=== PATIENT | female | born 1940 | race Caucasian/White ===

== ENCOUNTER → 2016-12-07 | Outpatient (CLI) | payer OTHER ==
[~2016-12-07] MED LIST: AGM875 PO; DRV100 PO
[2016-12-07 14:54] LABS: HEMATOCRIT 39.7 % (37-47); MEAN CELL VOLUME 97.5 fL (80-100); MEAN CORPUSCULAR HEMOGLOBIN 32.2 pg (25-34); MEAN PLATELET VOLUME 10.6 fL (7.4-10.4); PLATELET COUNT 317 K/uL (130-400); RED BLOOD COUNT 4.07 M/uL (4.2-5.4); WHITE BLOOD COUNT 6.52 K/uL (4.8-10.8)
== END | disposition home or self-care (01) ==
LOC: C.LAB1850 12:54
PROVIDERS: ATTEND Obstetrics & Gynecology
DX: Z01.818 Encounter for other preprocedural examination (principal)

== ENCOUNTER → 2017-01-15 | Outpatient (CLI) | payer OTHER ==
[~2017-01-15] MED LIST changes: -AGM875 PO; -DRV100 PO; +MULT-506 PO
== END | disposition home or self-care (01) ==
LOC: C.PAPS 10:01
PROVIDERS: ATTEND Obstetrics & Gynecology
DX: N36.8 Other specified disorders of urethra (principal)

== ENCOUNTER → 2017-05-22 | Outpatient (CLI) | payer OTHER ==
--- NOTE | 2017-05-22 10:31 | DIAGNOSTIC IMAGING REPORT ---
SI JOINTS 3 OR MORE VIEWS CLINICAL HISTORY: RADICULOPATHY LUMBAR REGION COMPARISON STUDY: No previous studies for comparison. FINDINGS: The sacroiliac joints are intact without evidence for ankylosis. There is mild osteophytosis with vacuum disc phenomenon within the sacroiliac joints. No fracture is identified. 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 Electronically signed by: Jus Major M.D. 05/22/2017 10:30 AM Dictated Date/Time: 05/22/2017 10:29 AM
--- NOTE | 2017-05-22 10:31 | DIAGNOSTIC IMAGING REPORT ---
L-SPINE MIN 4 VIEWS ROUTINE CLINICAL HISTORY: RADICULOPATHY LUMBAR REGION COMPARISON: None FINDINGS: Note is made of mild levoscoliosis of the lumbar spine and 4 mm of anterolisthesis of L4 and L5. There is no fracture or suspicious lesion within the lumbar spine by radiography. There is marked disc space narrowing at T12-L1. There is moderate disc space narrowing and osteophytosis at multiple additional levels. Moderate to severe multilevel facet arthrosis is present. IMPRESSION: 1. Mild levoscoliosis of the lumbar spine and grade I anterolisthesis of L4 and L5, likely due to facet arthrosis. 2. Marked disc space narrowing at T12-L1 with moderate disc space narrowing and osteophytosis at multiple additional levels. 3. Moderate to severe multilevel facet arthrosis. Electronically signed by: Jus Major M.D. 05/22/2017 10:29 AM Dictated Date/Time: 05/22/2017 10:28 AM
== END | disposition home or self-care (01) ==
LOC: C.RAD1850 10:13
PROVIDERS: ATTEND Family Medicine
DX: M54.16 Radiculopathy, lumbar region (principal)

== ENCOUNTER → 2017-06-18 | Outpatient (CLI) | payer OTHER ==
--- NOTE | 2017-06-18 09:38 | DIAGNOSTIC IMAGING REPORT ---
ULTRASOUND KIDNEYS AND BLADDER CLINICAL HISTORY: Microscopic hematuria. Prolapsed urethral mucosa. COMPARISON STUDY: No priors. TECHNIQUE: Real-time, grayscale, and color flow sonography of the kidneys and bladder is performed. Images are reviewed in the transverse and longitudinal planes. FINDINGS: Kidneys: The kidneys are normal in size and echotexture. The right kidney measures 10.2 cm in length and the left kidney measures 10.2 cm in length. There is no hydronephrosis. No shadowing renal calculi are identified. There is no sonographic evidence of contour deforming renal mass lesion. No perinephric fluid is identified. Bladder: The bladder wall appears mildly thickened and trabeculated. Intraluminal debris is noted. Bilateral ureteral jets were seen. IMPRESSION: 1. The kidneys are normal in size and without hydronephrosis. 2. The bladder wall appears mildly thickened and trabeculated. Intraluminal debris is noted. Correlation with analysis will be required. Electronically signed by: Jose Long M.D. 06/18/2017 9:37 AM Dictated Date/Time: 06/18/2017 9:36 AM
== END | disposition home or self-care (01) ==
LOC: C.ULTR 08:59
PROVIDERS: ATTEND Urology
DX: R31.29 Other microscopic hematuria (principal); N36.8 Other specified disorders of urethra